=== PATIENT | female | born 1995 | race Caucasian/White ===

== ENCOUNTER 2021-09-19 16:36 | Observation (INO) | payer OTHER ==
[2021-09-19 17:36] LABS: HEMOGLOBIN 10.3 gm/dl (12.3-15.3); RED BLOOD COUNT 3.96 M/UL (4.00-5.10); WHITE BLOOD COUNT 11.4 K/UL (4.5-11.0)
[2021-09-19 17:58] LABS: BUN/CREATININE RATIO 12 (0-10)
== END 2021-09-20 16:51 | disposition home or self-care (01) ==
LOC: ER1 16:36 → GENOP 16:36 → EDSTATUS 16:43 → CDU 22:02 → OB 22:02
PROVIDERS: Emergency Medicine; ADMIT Obstetrics & Gynecology
DX: O99.413 Diseases of the circulatory system complicating pregnancy, third trimester (principal); O99.891 Other specified diseases and conditions complicating pregnancy; O24.913 Unspecified diabetes mellitus in pregnancy, third trimester; R00.0 Tachycardia, unspecified; R55 Syncope and collapse; I31.3 Pericardial effusion (noninflammatory); O16.3 Unspecified maternal hypertension, third trimester; Z3A.31 31 weeks gestation of pregnancy; Z82.49 Family history of ischemic heart disease and other diseases of the circulatory system; Z20.822 Contact with and (suspected) exposure to COVID-19
CPT/HCPCS: ECHO; 71045; 80053; 81001; 82550; 82553; 83735; 83880; 84439; 84443; 84484; 85025; 93005; 93270; 93306; 99285; G0378; Q9967; U0002

== ENCOUNTER 2021-11-07 16:49 | Inpatient (IN) | payer OTHER ==
[~2021-11-07] VITALS: Ht 152.4 cm; Wt 115.7 kg
[2021-11-07] MEDS ORDERED: PRENATAL TABLE1 EAC1 PO (19:05)
[2021-11-07] MEDS ORDERED: IRON325 M1 PO (19:06)
[2021-11-07 20:51] LABS: HEMOGLOBIN 12.3 gm/dl (12.3-15.3); RED BLOOD COUNT 4.54 M/UL (4.00-5.10); WHITE BLOOD COUNT 13.4 K/UL (4.5-11.0)
[2021-11-08] MEDS ORDERED: COLACE 100MG C100 MG PO (20:23)
[2021-11-08] MEDS ORDERED: IBUPROFEN600 MG PO (20:23)
[2021-11-09 03:42] LABS: HEMOGLOBIN 10.9 gm/dl (12.3-15.3)
[2021-11-10] MEDS ORDERED: HYDROCODON-ACE1 EAC4 PO (10:35)
== END 2021-11-10 16:51 | disposition home or self-care (01) | DRG 807 ==
LOC: GENOP 16:49 → OB 17:21
PROVIDERS: ADMIT Obstetrics & Gynecology
PROC: 4A1HXCZ Monitoring of Products of Conception, Cardiac Rate, External Approach (ICD-10-PCS; 2021-11-07)
PROC: 10E0XZZ Delivery of Products of Conception, External Approach (ICD-10-PCS; principal; 2021-11-08)
PROC: 10907ZC Drainage of Amniotic Fluid, Therapeutic from Products of Conception, Via Natural or Artificial Opening (ICD-10-PCS; 2021-11-08)
PROC: 0HQ9XZZ Repair Perineum Skin, External Approach (ICD-10-PCS; 2021-11-08)
DX: O99.214 Obesity complicating childbirth (principal); Z37.0 Single live birth; E66.9 Obesity, unspecified; Z3A.39 39 weeks gestation of pregnancy; Z20.822 Contact with and (suspected) exposure to COVID-19; O76 Abnormality in fetal heart rate and rhythm complicating labor and delivery; Z82.49 Family history of ischemic heart disease and other diseases of the circulatory system; Z98.890 Other specified postprocedural states; Z83.49 Family history of other endocrine, nutritional and metabolic diseases; O70.0 First degree perineal laceration during delivery
CPT/HCPCS: 36415; 36600; 81001; 82800; 85014; 85018; 85025; 85461; 86850; 86900; 86901; 90471; 90715; J2590; J2790; Q0177